=== PATIENT | male | born 1950 | race Caucasian/White ===

== ENCOUNTER 2016-09-21 05:38 | Outpatient (CLI) | payer MEDICARE ==
[~2016-09-21] VITALS: Ht 175.3 cm; Wt 81.6 kg
[2016-09-21] MEDS ORDERED: GUAI600T43 PO (15:35)
[2016-09-21] MEDS ORDERED: CELE200C PO (15:35)
[2016-09-21] MEDS ORDERED: ASPI-808 PO (15:35)
[2016-09-21] MEDS ORDERED: CARV6.25 PO (15:35)
== END 2016-09-21 15:43 ==
LOC: PREOP 05:38
PROVIDERS: ATTEND Orthopaedic Surgery
DX: Z01.818 Encounter for other preprocedural examination (principal)

== ENCOUNTER 2016-09-27 08:03 | Day surgery (SDC) | payer MEDICARE ==
--- NOTE | 2016-09-25 08:09 | HISTORY AND PHYSICAL ---
DATE OF ADMISSION: 09/27/2016 DICTATING PHYSICIAN: Dr. Cotton This will be for outpatient surgery for right thumb giant cell excision. HISTORY: The patient is a 66-year-old [id number] gentleman with complaints of mass on the dorsal aspect of his right thumb. He reports that this has been present for several months and has grown in size. He reports it is tender. He denies any specific injuries. Due to interference with activities of daily living, the patient has elected to proceed with surgical intervention. REVIEW OF SYSTEMS: No chest pain, no shortness of breath. No dysuria. PAST MEDICAL HISTORY: 1. Stroke. 2. Paralyzed diaphragm. 3. Prostate cancer. PAST SURGICAL HISTORY: 1. Coronary. 2. Prostate. 3. Shoulder and knee scope. FAMILY HISTORY: Significant for diabetes. PRIMARY CARE PROVIDER: Dr. Osborne. MEDICATIONS: 1. Celebrex 2. Coreg 3. Mucinex ALLERGIES: Plavix. SOCIAL HISTORY: The patient drinks alcohol socially. She denies tobacco use. Radiographs reveal no acute or degenerative changes. PHYSICAL EXAMINATION: The patient is well-developed, well-nourished, in no acute distress. HEENT: Normocephalic, atraumatic. Pupils are equal, round, and reactive to light. OROPHARYNX: Clear. NECK: Supple. No lymphadenopathy. LUNGS: Clear to auscultation bilaterally. HEART: Regular rate and rhythm. ABDOMEN: Soft, nontender, nondistended. EXTREMITY EXAM: The right thumb demonstrates a mass dorsally for the DIP joint extending just proximal to the nail plate and extending over to the radial aspect just proximal to the DIP joint. There is no erythema or warmth. This is mildly tender to palpation. There is no fluctuance noted. No skin lesions are noted. IMPRESSION: Giant cell tumor, right thumb. PLAN: Right thumb giant cell tumor excision. The risks, benefits, options, ramifications and recovery were discussed in length with the patient. He understands wishes to proceed. Job ID: [id number] Dictated Date: 09/18/2016 12:15:00 Veterinary Milk Specialist Date: 09/19/2016 08:19:52/evy
[~2016-09-27] VITALS: Ht 175.3 cm; Wt 81.6 kg
[~2016-09-27 08:03] MED LIST: ASPI-808 PO; CARV6.25 PO; CELE200C PO; GUAI600T43 PO
[2016-09-27] MEDS ORDERED: NS (IVPB) 50 ML ONE (08:19)
[2016-09-27] MEDS ORDERED: ceFAZolin 1,000 MG (ANCEF) VIAL ONE (08:19)
--- NOTE | 2016-09-27 08:25 | Progress Note-Pre Operative ---
Pre-Operative Progress Note H&P Reviewed The H&P was reviewed, patient examined and no changes noted. 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
--- NOTE | 2016-09-27 08:26 | Progress Note-Post Operative ---
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
[2016-09-27] MEDS ORDERED: ceFAZolin 1 GM/NS 50 ML IVPB IV ONE ×2 (08:45)
[2016-09-27] MEDS ORDERED: AMOX500C2 PO (08:49)
[2016-09-27 08:52] VITALS: BP 151/98
[2016-09-27] MEDS ORDERED: LACTATED RINGERS 1,000 ML IV PRN (09:24)
[2016-09-27] MEDS ORDERED: HYDROcodone/APAP 7.5 MG/325 MG (LORTAB, LORCET PLUS) TABLET PO PRN (09:30)
[2016-09-27] MEDS ORDERED: LIDOCAINE 1% INJ 20 ML (XYLOCAINE) VIAL ONE (09:54)
[2016-09-27] MEDS ORDERED: BUPIVACAINE 0.5% 30 ML (SENSORCAINE) VIAL ONE (09:54)
[2016-09-27] MEDS ORDERED: MIDAZOLAM 2 MG/2 ML (VERSED) VIAL ONE (10:04)
[2016-09-27] MEDS ORDERED: fentaNYL INJECTION 100 MCG/2 ML AMP ONE (10:04)
[2016-09-27] MEDS ORDERED: SEVOFLURANE (ULTANE) 15 ML INHAL SOLN ONE (10:50)
[2016-09-27] MEDS ORDERED: LACTATED RINGERS 1,000 ML IV ONE (10:50)
[2016-09-27] MEDS ORDERED: ONDANSETRON 4 MG/2 ML (SDV) Z0FRAN ONE (10:50)
[2016-09-27] MEDS ORDERED: DEXAMETHASONE PF 10 MG/ML (DECADRON) VIAL ONE (10:50)
[2016-09-27] MEDS ORDERED: proPOfol 200 MG/20 ML (DIPRIVAN) VIAL IV ONE ×2 (10:50→10:51)
[2016-09-27] MEDS ORDERED: LIDOCAINE PF 2% 10 ML (XYLOCAINE) AMP ONE (10:51)
[2016-09-27] MEDS ORDERED: morphine INJ 10 MG/ML 1ML (SYR OR VIAL) IV PRN (11:15)
[2016-09-27] MEDS ORDERED: PROMETHAZINE INJ 25 MG/ML (PHENERGAN) AMP IVP ONE (11:15)
[2016-09-27] MEDS ORDERED: ONDANSETRON 4 MG/2 ML (SDV) Z0FRAN IV ONE (11:15)
[2016-09-27 11:40] VITALS: BP 146/97
[2016-09-27] MEDS ORDERED: HYDR-3816 PO (11:55)
[2016-09-27 12:10] VITALS: BP 150/107
[2016-09-27 12:40] VITALS: BP 129/87
--- NOTE | 2016-09-28 11:56 | OPERATIVE REPORT ---
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 PROCEDURE: Right thumb giant cell tumor of the tendon sheath excision SURGEON: Yury ASPHALT PLANT WORKER: Jim Alicea who assisted throughout the procedure and closed the incision. ANESTHESIA: General endotracheal by Azra Iqbal CRNA. TOURNIQUET TIME: 12 minutes at 250 mmHg. ESTIMATED BLOOD LOSS: Minimal. DRAINS: None. COMPLICATIONS: None PATHOLOGIC SPECIMEN: Sent. The patient was transported to the recovery room, awake, in stable condition. STATEMENT OF MEDICAL NECESSITY: The patient is a 66-year-old, [id number] gentleman with complaints of mass on the dorsal aspect of his right thumb from the DIP joint extending distally. He had ridge in his nail plate and the patient was counseled that he may always have an abnormal nail plate. He understood this. He also understood that if this was a giant cell tumor that there was a relatively high risk of recurrence. PROCEDURE: After risks and benefits of procedure were discussed and questions were answered an informed consent was signed and placed on the chart. The operative site was confirmed in the preoperative holding and initialed by the surgeon. The patient was then transported to the operating room and after adequate levels of general endotracheal anesthetic were obtained, a timeout was called confirming the operative site. The right upper extremity prepped and draped in the usual sterile fashion. With arm elevated, the tourniquet was inflated to 250 mmHg. A V-shaped incision was made over the mass. The underlying soft tissues were carefully dissected. There was a cystic mass noted just proximal to the nail plate. This was decompressed. There was hypertrophic tissue noted on the radial aspect of the extensor tendon sheath, which was excised. The sheath was incised as well exposing the DIP joint where there is hypertrophic synovium which was excised and sent for pathologic examination. No other masses were noted. The wound was copiously irrigated. The extensor tendon opening was closed with 4-0 Vicryl in horizontal mattress interrupted fashion. The tourniquet was deflated for total tourniquet time of 12 minutes. Pressure was used for hemostasis. The wound was further irrigated. 4-0 nylon was used to reapproximate the skin incision in simple interrupted fashion. A thumb block was placed using plain Marcaine. A soft dressing was applied and the patient was transported to the recovery room, awake, in stable condition. Job ID: [id number] Dictated Date: 09/27/2016 10:50:09 Rental Counter Clerk Date: 09/28/2016 11:48:35 / tasia
== END 2016-09-27 12:55 | disposition home or self-care (01) ==
LOC: DELPENDDIS → SDC 08:03
PROVIDERS: ATTEND Orthopaedic Surgery
DX: D48.1 Neoplasm of uncertain behavior of connective and other soft tissue (principal); I10 Essential (primary) hypertension; Z11.2 Encounter for screening for other bacterial diseases; Z86.73 Personal history of transient ischemic attack (TIA), and cerebral infarction without residual deficits; Z85.46 Personal history of malignant neoplasm of prostate; R22.31 Localized swelling, mass and lump, right upper limb
CPT/HCPCS: 87081; 88305

== ENCOUNTER 2018-09-18 14:35 | Outpatient (CLI) | payer MEDICARE, OTHER ==
[~2018-09-18] VITALS: Ht 175.3 cm; Wt 83.5 kg
[~2018-09-18 14:35] MED LIST changes: +AMOX500C2 PO; +HYDR-34 PO
[2018-09-18] MEDS ORDERED: MULT-974 PO (14:55)
[2018-09-18] MEDS ORDERED: GLUC-173 PO (14:55)
[2018-09-18] MEDS ORDERED: CARV3.122 PO (14:55)
[2018-09-18] MEDS ORDERED: RT-ALBUINH IH (15:04)
== END 2018-09-18 16:00 | disposition home or self-care (01) ==
LOC: PREOP 14:35
PROVIDERS: ATTEND Orthopaedic Surgery
DX: Z01.818 Encounter for other preprocedural examination (principal)
CPT/HCPCS: 87081

== ENCOUNTER 2018-09-25 09:46 | Day surgery (SDC) | payer MEDICARE, OTHER ==
[~2018-09-25] VITALS: Ht 175.3 cm; Wt 83.5 kg
[~2018-09-25 09:46] MED LIST changes: +CARV3.122 PO; +GLUC-173 PO; +MULT-974 PO; +RT-ALBUINH IH
[2018-09-25] MEDS ORDERED: morphine PF (DURAMORPH) 10 MG/10 ML AMP ONE (10:04)
[2018-09-25] MEDS ORDERED: BUPIVACAINE 0.25% 30 ML (SENSORCAINE) VIAL ONE (10:04)
[2018-09-25 10:10] VITALS: BP 153/95
[2018-09-25] MEDS: LACTATED RINGERS 1,000 ML IV PRN ×2 (10:10→12:11)
[2018-09-25] MEDS ORDERED: CATHETER FLUSH 10 ML SYR IV PRN (10:15)
[2018-09-25] MEDS ORDERED: ceFAZolin INJECTION 1,000 MG in WATER (STERILE) FOR INJECTION 10 ML IV ONE (10:15)
[2018-09-25] MEDS ORDERED: proPOfol 200 MG/20 ML (DIPRIVAN) VIAL IV ONE (10:30)
[2018-09-25] MEDS ORDERED: LIDOCAINE PF 2% 5 ML (XYLOCAINE) VIAL ONE (10:30)
[2018-09-25] MEDS ORDERED: ONDANSETRON 4 MG/2 ML (SDV) Z0FRAN ONE (10:30)
[2018-09-25] MEDS ORDERED: SEVOFLURANE (ULTANE) 15 ML INHAL SOLN ONE (10:30)
[2018-09-25] MEDS ORDERED: ONDANSETRON 4 MG/2 ML (SDV) Z0FRAN IV ONE (10:30)
[2018-09-25] MEDS ORDERED: DEXAMETHASONE 10 MG/ML (DECADRON) 1 ML VIAL ONE (10:30)
[2018-09-25] MEDS ORDERED: FAMOTIDINE 20MG/2ML IV (PEPCID) IV ONE (10:30)
[2018-09-25] MEDS ORDERED: fentaNYL INJECTION 100 MCG/2 ML AMP ONE (10:30)
[2018-09-25] MEDS ORDERED: MIDAZOLAM 2 MG/2 ML (VERSED) VIAL ONE (10:31)
--- NOTE | 2018-09-25 11:18 | Progress Note-Pre Operative ---
Pre-Operative Progress Note H&P Reviewed The H&P was reviewed, patient examined and no changes noted. 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
--- NOTE | 2018-09-25 11:19 | Progress Note-Post Operative ---
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
[2018-09-25] MEDS ORDERED: HYDROcodone/APAP 7.5 MG/325 MG (LORTAB, LORCET PLUS) TABLET PO PRN (11:30)
[2018-09-25] MEDS ORDERED: morphine INJ 10 MG/ML 1ML (SYR OR VIAL) IVP ONE (12:00)
[2018-09-25] MEDS ORDERED: ONDANSETRON 4 MG/2 ML (SDV) Z0FRAN IVP PRN (12:00)
[2018-09-25 12:55] VITALS: BP 146/93
[2018-09-25] MEDS ORDERED: ACHD5005 PO (13:13)
[2018-09-25 13:25] VITALS: BP 142/91
--- NOTE | 2018-09-25 13:30 | Anesthesia-General Post-Op ---
General Patient Condition Mental Status/LOC: Same as Preop Cardiovascular: Satisfactory Nausea/Vomiting: Absent Respiratory: Satisfactory Pain: Controlled Complications: Absent Post Op Complications Complications None Follow Up Care/Instructions Patient Instructions None needed. Anesthesia/Patient Condition Patient Condition Patient is doing well, no complaints, stable vital signs, no apparent adverse anesthesia problems. No complications reported per nursing. BOY BUTT CRNA Sep 25, 2018 13:30
--- NOTE | 2018-09-25 13:40 | Physical Therapy Ortho Eval ---
PT Orthopedic Evaluation Type of Surgery Knee Scope left side Prior Level of Function Current Living Status: Spouse Locomotion (Upon Admit): Independent Established Durable Medical Eq: Crutches Subjective Subjective Patient in bed pre tx, agrees to PT, has no complaints of pain. Entry Into Home: Ramp Objective Objective Patient has intact light touch sensation in left leg. Motor Control Motor Control: Motor Control WNL ROM left knee extension +1 degrees, flexion 95 degrees Strength NT Transfer Transfers (B, C, W/C) (FIM): 5 Gait Gait Assistive Device: Crutches Left Lower Extremity: Left Weight Bearing Status LLE: Weight Bearing/Tolerated Gait (FIM): 5 Distance: 200' Gait Level of Assist: 5 Summary/Comments Patient ambulated 200' with axillary crutches with SBA and cues for gait pattern. Patient had no LOB. He also went up and down 1 step using crutches with SBA. Treatment Rendered Treatment: Therapeutic Exercises, Gait Train, Step Train Exercise Instruction: Quad Sets, Heel Slides, Ankle Pumps Assessment/Goals Goal Time Frame: 1 Visit Plan Treatment Plan: Discharge PT/Family Agrees to Plan: Yes Time Time In: 1310 Time Out: 1330 Total Billed Treatment Time: 20 Billed Treatment Time 1 visit EVL 20' JAMIL SIDHU PT Sep 25, 2018 13:40
[2018-09-25 13:55] VITALS: BP 138/98
--- NOTE | 2018-09-25 16:29 | OPERATIVE REPORT ---
DATE OF SERVICE: 09/25/2018 PREOPERATIVE DIAGNOSES: 1. Left knee lateral meniscus tear. 2. 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 POSTOPERATIVE DIAGNOSES: 1. Left knee medial meniscus tear. 2. 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 3. 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 4. Left knee chondromalacia of the trochlea. PROCEDURES: 1. Left knee arthroscopic partial medial meniscectomy. 2. Left knee arthroscopic chondroplasty of the medial tibial plateau. 3. Left knee arthroscopic chondroplasty of the lateral tibial plateau. 4. Left knee arthroscopic chondroplasty of the trochlea. SURGEON: Kiara Mueller MD. SENIOR CONSULTING MANAGER: CICI Damon. ANESTHESIA: General endotracheal by Dr. Gilmore. TOURNIQUET TIME: Not applicable. ESTIMATED BLOOD LOSS: Minimal. DRAINS: None. COMPLICATIONS: None. POSTOPERATIVE PLANS: Routine arthroscopy protocol. The patient was transferred to the recovery room awake and in stable condition. STATEMENT OF MEDICAL NECESSITY: The patient is a 68-year-old gentleman with complaints of left lateral knee pain, catching, locking and swelling. He is tender along his lateral joint line and pain with patellar loading as well. He had a moderate effusion noted. It was felt that he likely had lateral meniscus tears with associated chondromalacia and due to functional impairment and failure to improve with conservative measures, the patient elected to proceed with surgical intervention. Examination under anesthesia revealed range of motion of 0/0/130 with a negative Effie, negative anterior and posterior drawer. No varus valgus laxity and negative pivot shift. Arthroscopic findings, the patella demonstrated grade I chondral softening with no significant unstable chondral flaps. The trochlea demonstrated grade III chondral loss over the lateral aspect of the groove with surrounding grade III chondral flaps and a 15 x 10 area. The medial and lateral gutters were clear. The ACL and PCL were intact. Medial compartment demonstrated a tear of the posterior horn/body junction of the medial meniscus involving approximately 30% of the junction. In addition, there were grade II chondral flaps in the central portion of the tibial plateau and a 10 x 10 area. The lateral compartment demonstrated a grade II chondral flap over the most posterolateral corner of the joint surface and an 8 x 10 area. DESCRIPTION OF PROCEDURE: After risks and benefits of procedure were discussed and questions were answered and informed consent was signed and placed on chart, the patient was then transferred to the operating room and after adequate levels of general endotracheal anesthetic were obtained, a timeout was called confirming the operative site. Examination under anesthesia was performed with the above findings noted. The left lower extremity was prepped and draped in the usual sterile fashion. The knee joint was injected with 60 mL of fluid. A standard inferolateral portal was placed for the arthroscope and inflow. Under direct visualization, inferomedial portal was created. The menisci and cruciates were carefully probed with the above findings noted. The unstable chondral flaps of the trochlea were debrided with a shaver back to a stable edge. Scope was then redirected into the medial compartment and then unstable chondral flaps of the medial tibial plateau and the medial meniscus tear was debrided with a biter and a shaver back to a stable edge. This was carefully probed. No further tearing or instability noted. The scope was redirected into the lateral compartment and the unstable chondral flaps of the lateral tibial plateau were debrided with a shave back to stable edge. The knee was copiously irrigated. The portal sites were closed with 4-0 nylon in simple interrupted fashion. The knee was injected with Duramorph. Port sites were infiltrated with plain Marcaine. A soft dressing was applied and the patient was transferred to recovery room awake and in stable condition. Job ID: [id number] DocumentID: [id number] Dictated Date: 09/25/2018 11:53:37 Liability Claims Adjuster Date: 09/25/2018 16:28:38 Dictated By: KIARA MUELLER MD
--- NOTE | 2018-09-30 14:34 | HISTORY AND PHYSICAL ---
DATE OF SERVICE: ADMISSION HISTORY AND PHYSICAL This will be for left knee arthroscopy on 09/25/2018. HISTORY OF PRESENT ILLNESS: The patient is a 68-year-old gentleman who injured his left knee 1 year ago while splitting wood. He had a piece of wood striking the anterior aspect of his knee and since then there is swelling, pain, catching and locking. Reports pain on the posterolateral aspect of the knee. He reports no improvement with rest, activity modifications, anti-inflammatories. Prior to this injury, he had no knee issues. Due to functional impairment and failure to improve with conservative measures, the patient elected to proceed with surgical intervention. REVIEW OF SYSTEMS: No chest pain, no shortness of breath. No dysuria. PAST MEDICAL HISTORY: Significant for CVA, paralyzed diaphragm and prostate cancer. PAST SURGICAL HISTORY: Thumb, cholecystectomy, prostate, coronary, left shoulder, left knee, right clavicle, right rotator cuff. FAMILY HISTORY: Diabetes. MEDICATIONS: Celebrex, Coreg, aspirin. ALLERGIES: PLAVIX. SOCIAL HISTORY: The patient denies alcohol, tobacco use. PHYSICAL EXAMINATION: GENERAL: The patient is well developed, well nourished, in no acute distress. HEENT: Normocephalic, atraumatic. Pupils are equal, round, reactive to light. Oropharynx is clear. NECK: Supple. No lymphadenopathy. LUNGS: Clear to auscultation bilaterally. HEART: Regular rate and rhythm. ABDOMEN: Soft, nontender, nondistended. EXTREMITIES: The left knee demonstrates moderate effusion. He is tender along his posterolateral joint and has pain posteriorly with hyperflexion with Audrey's. No varus valgus laxity. Negative anterior and posterior drawer. Ambulates with an antalgic gait. There is no varus valgus laxity. Radiographs reveal moderate patellofemoral arthrosis. IMPRESSION: Left knee lateral meniscus tear with chondromalacia patella. PLAN: Left knee arthroscopy with partial lateral meniscectomy and chondroplasty. The risks, benefits, options, ramifications and recovery were discussed at length with the patient. He understands and wished to proceed. This will be for outpatient surgery on 09/25/2018. Job ID: [id number] DocumentID: [id number] Dictated Date: 09/16/2018 16:03:15 Sash Finisher Date: 09/16/2018 16:49:27 Dictated By: KIARA MUELLER MD <Dictated by KIARA MUELLER MD> <Electronically signed by KIARA MUELLER MD> 09/18/18 0718
== END 2018-09-25 13:55 | disposition home or self-care (01) ==
LOC: SDC 09:46
PROVIDERS: ATTEND Orthopaedic Surgery
DX: M23.222 Derangement of posterior horn of medial meniscus due to old tear or injury, left knee (principal); M94.262 Chondromalacia, left knee; M25.462 Effusion, left knee; I10 Essential (primary) hypertension; J45.909 Unspecified asthma, uncomplicated; Z86.73 Personal history of transient ischemic attack (TIA), and cerebral infarction without residual deficits; Z85.46 Personal history of malignant neoplasm of prostate; Z87.891 Personal history of nicotine dependence; Z79.82 Long term (current) use of aspirin; Z79.899 Other long term (current) drug therapy